=== PATIENT | male | born 1990 | race African-American/Black ===

== ENCOUNTER 2016-05-01 19:52 | Emergency (ER) | payer SELFPAY ==
[~2016-05-01] VITALS: Ht 180.3 cm; Wt 65.8 kg
[~2016-05-01 19:52] MED LIST: ALBUTEROL SULF8.5 GM INH; CHLORPHENIRAMINE4 MG ORAL; IBUPROFEN600 MG ORAL; NKM; PROMETH-CODEIN 65 ML PO; TAMIFLU75 MG ORAL
[2016-05-01 20:37] VITALS: BP 117/66
--- NOTE | 2016-05-01 21:16 | Emergency Room Report ---
History of Present Illness General Chief Complaint: General Complaint Source: Patient Present Illness HPI Patient states sig other eval and told she was + for trichomonas. He is circumcised. No dysuria. No skin rashes. No lymphadenopathy. No fevers. She was tested for GC, chlamydia, HIV - all negative. Allergies: Coded Allergies: PENICILLINS (Unverified Allergy, Unknown, 05/01/16) Uncoded Allergies: PENICILLIN (Allergy, Unknown, 02/12/16) Patient History Past Medical History: see triage record Social History Narrative in relationship Reviewed Nursing Documentation: PMH: Agreed, PSxH: Agreed Nursing Documentation-PMH Past Medical History: No Stated History Review of Systems All Other Systems: negative except mentioned in HPI Physical Exam Vital Signs Date Time Temp Pulse Resp B/P Pulse Ox O2 Delivery O2 Flow Rate FiO2 05/01/16 20:26 98.1 62 16 117/66 100 Room Air Sp02 EP Interpretation: reviewed, normal General Appearance: well appearing, no apparent distress, GCS 15 Head: normocephalic, atraumatic Eyes: bilateral eye PERRL, bilateral eye normal inspection ENT: hearing grossly normal, normal voice, moist mucus membranes Neck: full range of motion, supple Respiratory: no respiratory distress, speaking full sentences Genitourinary: penis normal, other - circumcized Musculoskeletal: digits/nails normal, gait/station normal, normal range of motion, no calf tenderness Neurologic: alert, normal gait, grossly normal Psychiatric: mood/affect normal Skin: no rash Medical Decision Making Diagnostic Impression: Primary Impression: Exposure to trichomonas ER Course Patient with exposure to trichomonas. Asymptomatic. Lower risk for trichomonas with uncircumcised patient. Still will treat as possible transmission. Patient stable for outpatient observation and treatment. Last Vital Signs Date Time Temp Pulse Resp B/P Pulse Ox O2 Delivery O2 Flow Rate FiO2 05/01/16 21:30 98.1 62 16 117/66 100 Room Air Status: unchanged Disposition: HOME, SELF-CARE Condition: Stable Scripts Metronidazole* (FLAGYL*) 500 Mg Tablet 500 MG ORAL THREE TIMES A DAY, #21 TAB 0 Refills Prov: Zen Burr M.D. 05/01/16 Zen Burr M.D. May 01, 2016 21:16
[2016-05-01] MEDS ORDERED: FLAGYL500 MG ORAL (21:17)
[2016-05-01 21:30] VITALS: BP 117/66
[2016-05-01 22:22] LABS: APPEARANCE,URINE CLEAR; KETONES,URINE NEGATIVE (NEGATIVE); LEUKOCYTE ESTERASE ,URINE NEGATIVE (NEGATIVE); NITRITE,URINE NEGATIVE (NEGATIVE); PH,URINE 6 (4.5-8.0); PROTEIN,URINE 1+ (NEGATIVE); UROBILINOGEN,URINE NORMAL MG/DL (0.0-1.0)
[2016-05-01 22:36] LABS: WBC,URINE 0-2 /HPF (0 - 0)
[2016-05-01 22:37] LABS: BACTERIA,URINE FEW /HPF; MUCUS,URINE MODERATE /LPF (NONE/OCC)
== END 2016-05-01 21:35 | disposition home or self-care (01) ==
LOC: EMR 21:31
DX: Z04.8 Encounter for examination and observation for other specified reasons (principal); Z88.0 Allergy status to penicillin
CPT/HCPCS: 81003; 99282